=== PATIENT | female | born 1985 | race Caucasian/White ===

== ENCOUNTER 2017-12-08 19:06 | Emergency (ER) | payer MEDICAID, OTHER | END 2017-12-08 19:48 | disposition home or self-care (01) | LOC: EDH 19:06 | DX: T16.1XXA Foreign body in right ear, initial encounter (principal); Z88.8 Allergy status to other drugs, medicaments and biological substances; Z72.0 Tobacco use; X58.XXXA Exposure to other specified factors, initial encounter; Y93.89 Activity, other specified; Y92.89 Other specified places as the place of occurrence of the external cause; Y99.8 Other external cause status | CPT/HCPCS: 99281 ==

== ENCOUNTER 2018-03-07 11:41 | Emergency (ER) | payer MEDICAID, OTHER ==
[2018-03-07 12:18] LABS: BASOPHILS % (AUTO) 0.4 % (0.0-5.0); EOSINOPHILS % (AUTO) 2.2 % (0.0-8.0); HEMATOCRIT 39.5 % (36-48); LYMPHOCYTES % (AUTO) 32.5 % (21.0-51.0); MEAN CORPUSCULAR HGB CONC 33.7 g/dL (32.0-36.0); MEAN CORPUSCULAR VOLUME 89.1 fL (79-99); MONOCYTES % (AUTO) 6.7 % (3.0-13.0); NEUTROPHILS % (AUTO) 58.2 % (40.0-77.0); PLATELET COUNT (AUTO) 299 K/uL (130-400); RED BLOOD CELL COUNT(AUTO) 4.43 MIL/uL (4.00-5.50); RED CELL DISTRIBUTION WIDTH 14.9 % (11.0-15.5); WHITE BLOOD COUNT (AUTO) 9.5 K/uL (4.8-10.8)
[2018-03-07 12:25] LABS: CREATININE 0.8 mg/dL (0.5-1.5); POTASSIUM 3.9 mmol/L (3.5-5.1)
[2018-03-07 12:30] LABS: APPEARANCE,URINE Clear (CLEAR); BILIRUBIN,URINE Negative (NEGATIVE); COLOR,URINE Yellow (YELLOW); GLUCOSE, URINE (UA) Negative (NEGATIVE); KETONES,URINE Trace mg/dL (NEGATIVE); LEUKOCYTE ESTERASE ,URINE Negative (NEGATIVE); NITRATE,URINE Negative (NEGATIVE); OCCULT BLOOD,URINE Negative (NEGATIVE); PROTEIN,URINE Negative (NEGATIVE)
[2018-03-07 12:31] LABS: HCG,QUAL RESULT NEGATIVE (NEGATIVE)
[2018-03-07 12:40] LABS: BACTERIA,URINE Few /HPF (None Seen); RBC,URINE 0-1 /HPF (0-1); WBC,URINE 0-1 /HPF (0-1)
== END 2018-03-07 13:09 | disposition home or self-care (01) ==
LOC: EDH 11:41
DX: B34.9 Viral infection, unspecified (principal); F41.9 Anxiety disorder, unspecified; F31.9 Bipolar disorder, unspecified; F43.10 Post-traumatic stress disorder, unspecified; Z98.51 Tubal ligation status; Z90.49 Acquired absence of other specified parts of digestive tract
CPT/HCPCS: 36415; 80048; 81001; 81025; 85025; 87804

== ENCOUNTER 2022-01-11 07:33 | Emergency (ER) | payer MEDICAID, OTHER ==
[~2022-01-11] VITALS: Ht 167.6 cm; Wt 96.6 kg
[2022-01-11 07:59] LABS: BASOPHILS % (AUTO) 0.2 % (0.0-5.0); EOSINOPHILS % (AUTO) 1.9 % (0.0-8.0); HEMATOCRIT 41.7 % (36-48); LYMPHOCYTES % (AUTO) 12.3 % (21.0-51.0); MEAN CORPUSCULAR HGB CONC 34.3 g/dL (32.0-36.0); MEAN CORPUSCULAR VOLUME 90.3 fL (79-99); MONOCYTES % (AUTO) 6.4 % (3.0-13.0); NEUTROPHILS % (AUTO) 78.8 % (40.0-77.0); PLATELET COUNT (AUTO) 247 K/uL (130-400); RED BLOOD CELL COUNT(AUTO) 4.62 MIL/uL (4.00-5.50); RED CELL DISTRIBUTION WIDTH 12.6 % (11.0-15.5); WHITE BLOOD COUNT (AUTO) 16.6 K/uL (4.8-10.8)
[2022-01-11] MEDS ORDERED: 0.9%NACL 1000ML 1,000 ML IV ONE (08:00)
[2022-01-11 08:11] LABS: CREATININE 0.7 mg/dL (0.5-1.5); POTASSIUM 3.9 mmol/L (3.5-5.1)
[2022-01-11 08:16] LABS: ALBUMIN 3.2 g/dL (3.5-5.0); TOTAL PROTEIN, SERUM 6.5 g/dL (6.0-8.3)
[2022-01-11 08:34] LABS: APPEARANCE,URINE CLEAR (CLEAR); BILIRUBIN,URINE NEGATIVE (NEGATIVE); COLOR,URINE YELLOW (YELLOW); GLUCOSE, URINE (UA) NEGATIVE (NEGATIVE); KETONES,URINE NEGATIVE (NEGATIVE); LEUKOCYTE ESTERASE ,URINE NEGATIVE (NEGATIVE); NITRATE,URINE NEGATIVE (NEGATIVE); OCCULT BLOOD,URINE NEGATIVE (NEGATIVE); PH,URINE 5.5 (5.0-8.0); PROTEIN,URINE NEGATIVE (NEGATIVE); UROBILINOGEN,URINE 0.2 mg/dL (0.2-1.0)
[2022-01-11 08:57] VITALS: BP 135/88
[2022-01-11 08:59] LABS: BACTERIA,URINE Rare /HPF (None Seen); MUCUS,URINE Few LPF (None Seen); SQUAMOUS EPITHELIAL CELL,UR Few /HPF (0-2); WBC,URINE 0-1 /HPF (0-1)
[2022-01-11 09:33] LABS: HCG,QUALITATIVE URINE NEGATIVE (NEGATIVE)
[2022-01-11 09:39] LABS: AMPHET/METH SCREEN,URINE NEGATIVE (NEGATIVE); BARBITURATE SCREEN, URINE NEGATIVE (NEGATIVE); BENZODIAZEPINES SCREEN,URINE NEGATIVE (NEGATIVE); CANNABINOID SCREEN,URINE NEGATIVE (NEGATIVE); COCAINE SCREEN,URINE NEGATIVE (NEGATIVE); OPIATE SCREEN,URINE NEGATIVE (NEGATIVE); PHENCYCLIDINE SCREEN,URINE NEGATIVE (NEGATIVE)
[2022-01-11] MEDS ORDERED: CIPR-279 PO (09:47)
[2022-01-11] MEDS ORDERED: ONDA4TAB10 PO (09:47)
== END 2022-01-11 09:53 | disposition home or self-care (01) ==
LOC: EDH 07:33
DX: K52.9 Noninfective gastroenteritis and colitis, unspecified (principal); Z20.822 Contact with and (suspected) exposure to COVID-19; E11.9 Type 2 diabetes mellitus without complications; Z87.440 Personal history of urinary (tract) infections; Z90.49 Acquired absence of other specified parts of digestive tract
CPT/HCPCS: 99283; 96360; 87635; 80053; 80305; 85025; 81025; 36415; 81001; C9803; J7030

== ENCOUNTER 2024-06-17 01:23 | Emergency (ER) | payer OTHER ==
[~2024-06-17] VITALS: Ht 167.6 cm; Wt 95.3 kg
[~2024-06-17 01:23] MED LIST: CIPR-279 PO; ONDA-243 PO
[2024-06-17 01:40] VITALS: BP 142/74; PULSE 89; RESP 18; TEMP 97.8; O2SAT 97
[2024-06-17] MEDS ORDERED: LIDOCAINE HCL-MPF 2% 5ML VIAL ONE (01:46)
--- NOTE | 2024-06-17 01:59 | NUR ---
PATIENT AMA PATIENT WAS EXPLAINED PLAN OF TREATMENT BY ED MD AND ED RN. PATIENT DID NOT FEEL COMFORTABLE WITH WORD CATHETER PLACEMENT AND REFUSED TREATMENT PLAN. PATIENT ADVISED AND REINFORCED THE NEED FOR TREATMENT AND PROCEDURE. PATIENT STILL REFUSING TX AT THIS TIME. PATIENT REPORTED SHE WILL BE LEAVING HOSPITAL AGAINST MEDICAL ADVICE SHE NO LONGER WANTS TO GO THROUGH WITH TREATMENT HERE. PATIENT WAS EDUCATED ON TREATMENT PLAN AND VERBALIZED UNDERSTANDING OF THE RISKS AND CONSEQUENCES INVOLVED WITH LEAVING THE HOSPITAL AT THIS TIME, INCLUDING , THE BENEFITS OF CONTINUED TREATMENT AND WORSENING OF CONDITION. PATIENT STATES UNDERSANDING. ED MD AWARE AND AT BEDSIDE. AMA FORM SIGNED BY PATIENT. PATIENT ADVISED TO FOLLOW UP WITH PCP, OR RETURN TO NEAREST ER, OR CALL 911 FOR RETURN OR WORSENING OF SIGNS AND SYMPTOMS.
[2024-06-17] MEDS ORDERED: LIDOCAINE HCL 1% 20 ML VIAL INJ SCH (02:00)
[2024-06-17] MEDS ORDERED: ketaMINE 50MG/ML SYRINGE 50 MG/ML DISP.SYRIN IM ONE (02:00)
[2024-06-17] MEDS: ketaMINE 50MG/ML SYRINGE 50 MG/ML DISP.SYRIN IM ONE (02:10)
[2024-06-17] MEDS ORDERED: AMOX-427 PO (02:10)
--- NOTE | 2024-06-17 02:10 | ERN ---
ED Note History of Present Illness Stated Complaint: C/O OPEN ABSCESS TO VAGINAL AREA Chief Complaint: Abscess Time Seen by MD: 01:32 Allergies: Coded Allergies: acetaminophen (Unverified Allergy, 10/25/11) ITCHING hydrocodone bit (Unverified Allergy, 10/25/11) ITCHING trazodone (Unverified Allergy, 10/25/11) Home Meds Active Scripts Ondansetron (Ondansetron Odt) 4 Mg Tab.rapdis, 4 MG PO BID for 3 Days, #6 TAB Prov:ОЛЬГА RICE MD 01/11/22 Ciprofloxacin HCl (Cipro) 250 Mg Tablet, 250 MG PO BID for 7 Days, #14 TAB Prov:ОЛЬГА RICE MD 01/11/22 Past Medical History Dictation 38-year-old female presents with concerns for Bartholin cyst. Patient states she had a drain several days ago at another facility and that it has been worsening. Patient denies fevers, nausea, vomiting diaphoresis, syncope, presyncope, productive cough Past Medical History: Diabetes-Type II Surgical History: Cholecystectomy, Other Surgical History Other: TUBAL LIGATION LMP: May 22, 2024 Review of System Dictation See HPI Initial Vital Sign VS Vital Signs Date Time Temp Pulse Resp B/P (MAP) Pulse Ox O2 Delivery O2 Flow Rate FiO2 06/17/24 01:26 97.9 91 20 141/84 97 Room Air Physical Exam Dictation barthilon cyst on left labia. Elevated BMI, well-appearing, no acute physical distress ED Course ED Course Orders Procedure Category Date Status Time Lidocaine Hcl 1% 20ml PHA 06/17/24 In Process Vial (Lidocaine Hc 02:00 Ketamine 50mg/Ml PHA 06/17/24 Complete Syringe (Ketamine 02:00 Lidocaine Hcl-Mpf 2% PHA 06/17/24 Complete 5ml Vial (Lidocaine 01:46 Ketamine 50mg/Ml PHA 06/17/24 Complete Syringe (Ketamine 02:00 Current Medications Medications (Trade) Dose Ordered Sig/Reji Route PRN Reason Start Time Stop Time Status Last Admin Dose Admin Ketamine HCl (ketaMINE 50MG/ ML SYRINGE) 20 mg ONCE ONCE IM 06/17/24 02:00 06/17/24 01:54 DC Ketamine HCl (ketaMINE 50MG/ ML SYRINGE) 25 mg ONCE ONCE IM 06/17/24 02:00 06/17/24 02:01 DC Lidocaine HCl (Lidocaine HCl-Mpf 2% 5ml Vial) 1 ml STK-MED ONCE .ROUTE 06/17/24 01:46 06/17/24 01:52 DC Lidocaine HCl (Lidocaine HCl 1% 20ml Vial) 20 ml ONCE INJ 06/17/24 02:00 07/17/24 01:59 Vital Signs Date Time Temp Pulse Resp B/P (MAP) Pulse Ox O2 Delivery O2 Flow Rate FiO2 06/17/24 01:26 97.9 91 20 141/84 97 Room Air Medical Decision Making MDM Discussed placing word catheter in patient for appropriate drainage of cyst. Patient did not have word catheter placed at [facility]. Patient initially reluctant to undergo procedure because of sensitivity to pain. Offered patient ketamine. Patient initially consents to procedure, but then changes her mind and states that she wishes to go back to [facility]. Patient discharged with antibiotics. Return precautions given. Invited and answered all questions prior to discharge. Patient knows she can return at any time for any reason if she should change her mind about further evaluation management DX & DISP Disposition: Discharge Departure Impression: Primary Impression: Bartholin's gland infection Condition: Stable Scripts Amoxicillin/Potassium Clav (Augmentin Xr 1,000-62.5 Tab) 1,000 Mg-62.5 Mg Tab.er.12h 1 TAB PO BID for 10 Days, #20 TAB 0 Refills with food Prov: DB WILLAMS DO 06/17/24 Additional Instructions: Please return to the emergency department any time for any reason she change her mind about further management. Referrals: SELF,REFERRAL (PCP) DB WILLAMS DO Jun 17, 2024 02:10
[2024-06-17] MEDS ORDERED: BACLOFEN 10 MG TABLET PO SCH (02:30)
== END 2024-06-17 01:52 | disposition left against medical advice (07) ==
LOC: EDH 01:23
DX: N75.8 Other diseases of Bartholin's gland (principal); E11.9 Type 2 diabetes mellitus without complications; Z79.899 Other long term (current) drug therapy; Z90.49 Acquired absence of other specified parts of digestive tract; Z98.51 Tubal ligation status; Z98.890 Other specified postprocedural states
CPT/HCPCS: 99283; J3490